=== PATIENT | female | born 1995 | race Two or more races ===

== ENCOUNTER 2024-06-10 16:27 | Emergency (ER) | payer OTHER ==
[~2024-06-10] VITALS: Ht 162.6 cm; Wt 75.4 kg
[2024-06-10 18:30] VITALS: BP 123/95; PULSE 75; RESP 20; O2SAT 100
[2024-06-10 18:52] VITALS: TEMP 98.4
[2024-06-10] MEDS: IBUPROFEN 800 MG TAB PO ONE (18:52)
[2024-06-10] MEDS: ONDANSETRON ODT 4 MG TAB PO ONE (18:53)
== END 2024-06-10 20:42 | disposition home or self-care (01) ==
LOC: ER 16:27 → EDBD 16:27 → ER 20:42
DX: S09.90XA Unspecified injury of head, initial encounter (principal); S13.4XXA Sprain of ligaments of cervical spine, initial encounter; S16.1XXA Strain of muscle, fascia and tendon at neck level, initial encounter; V49.9XXA Car occupant (driver) (passenger) injured in unspecified traffic accident, initial encounter; Y93.89 Activity, other specified; Y92.89 Other specified places as the place of occurrence of the external cause; Y99.8 Other external cause status
CPT/HCPCS: 70450; 72125; 73090; 73130; 73590; 99284; Q0162